=== PATIENT | male | born 1995 | race Caucasian/White ===

== ENCOUNTER 2024-01-05 23:08 | Emergency (ER) | payer SELFPAY ==
[2024-01-06] MEDS: Aluminum Hydroxide/Magnesium Hydroxide/Simethicone Susp 30 ML Cup PO ONE (01:01)
== END 2024-01-06 01:08 | disposition home or self-care (01) ==
LOC: MW.ED 23:08
DX: F41.9 Anxiety disorder, unspecified (principal); R07.9 Chest pain, unspecified; R00.2 Palpitations; F17.210 Nicotine dependence, cigarettes, uncomplicated; Z88.0 Allergy status to penicillin; Z79.899 Other long term (current) drug therapy
CPT/HCPCS: 71045; 93005; 99285; A9270; 93010; 99284